=== PATIENT | male | born 1980 | race Caucasian/White ===

== ENCOUNTER 2018-07-30 16:32 | Emergency (ER) | payer SELFPAY ==
[~2018-07-30] VITALS: Ht 182.9 cm; Wt 88.2 kg
[2018-07-30] MEDS ORDERED: propanolol PO (16:54)
[2018-07-30] MEDS ORDERED: zoloft PO (16:54)
[2018-07-30 17:28] LABS: BASOPHILS # (AUTO) 0.01 x10^3/uL (0-0.1); BASOPHILS % (AUTO) 0 % (0-1); EOSINOPHILS # (AUTO) 0.06 x10^3/uL (0-0.4); EOSINOPHILS % (AUTO) 1 % (1-7); LYMPHOCYTES # (AUTO) 0.78 x10^3/uL (1-3.4); LYMPHOCYTES % (AUTO) 9 % (22-44); MD NO; MEAN CORPUSCULAR HEMOGLOBIN 33.8 pg (27.5-34.5); MEAN CORPUSCULAR HGB CONC 33.5 g/dL (33.2-36.2); MEAN CORPUSCULAR VOLUME 100.8 fL (81-97); MEAN PLATELET VOLUME 8.3 fL (7.4-10.4); MONOCYTES # (AUTO) 0.84 x10^3/uL (0.2-0.8); MONOCYTES % (AUTO) 9 % (2-9); NEUTROPHILS # (AUTO) 7.48 x10^3/uL (1.8-6.8); NEUTROPHILS % (AUTO) 82 % (42-75); PLATELET COUNT 226 x10^3/uL (130-400); RED BLOOD COUNT 4.99 x10^6/uL (4.38-5.82); RED CELL DISTRIBUTION WIDTH 14.2 % (9.4-14.8)
[2018-07-30] MEDS ORDERED: LORazepam 2 MG/ML, 1ML IVPush ONE (17:30)
[2018-07-30] MEDS ORDERED: SODIUM CHLORIDE 0.9% 1,000ML IVBOLUS ONE (17:30)
[2018-07-30] MEDS ORDERED: SODIUM CHLORIDE FLUSH 10ML SYR IVF ONE (17:30)
[2018-07-30 17:34] LABS: MICROSCOPIC AUTO
[2018-07-30 17:35] LABS: CULTURE INDICATED? YES
[2018-07-30 17:38] LABS: ALANINE AMINOTRANSFERASE 139 U/L (12-78); ALBUMIN 4.9 g/dL (3.4-5.0); ANION GAP 10 mmol/L (5-15); CALCIUM 9.6 mg/dL (8.5-10.1); CHLORIDE 101 mmol/L (98-107); CREATININE 0.87 mg/dL (0.7-1.3)
[2018-07-30 17:41] LABS: ALKALINE PHOSPHATASE 94 U/L (45-117); BILIRUBIN,TOTAL 2.5 mg/dL (0.2-1.0); TOTAL PROTEIN 9.4 g/dL (6.4-8.2)
[2018-07-30] MEDS ORDERED: LORazepam 2 MG/ML, 1ML ONE (17:47)
[2018-07-30 19:33] VITALS: BP 151/101
[2018-07-31] MEDS ORDERED: PROP20TA PO (13:20)
[2018-07-31] MEDS ORDERED: ANTI-ANXIETY (13:20)
== END 2018-07-30 19:36 | disposition home or self-care (01) ==
LOC: ED 18:15
DX: R19.7 Diarrhea, unspecified (principal); R10.30 Lower abdominal pain, unspecified
CPT/HCPCS: 36415; 74021; 80053; 81001; 85025; 87086; 96361; 96374; 99285; J2060; J7030

== ENCOUNTER 2018-07-31 11:06 | Emergency (ER) | payer SELFPAY ==
[~2018-07-31] VITALS: Ht 182.9 cm; Wt 88.4 kg
[~2018-07-31 11:06] MED LIST: propanolol PO; zoloft PO
[2018-07-31 11:16] VITALS: BP 114/75
[2018-07-31] MEDS ORDERED: FAMOTIDINE 20 MG TABLET ONE (11:22)
[2018-07-31] MEDS ORDERED: DIPHENHYDRAMINE 50 MG CAPSULE ONE (11:22)
[2018-07-31] MEDS ORDERED: DIPHENHYDRAMINE 25 MG CAPSULE PO ONE (11:30)
[2018-07-31] MEDS ORDERED: FAMOTIDINE 20 MG TABLET PO ONE (11:30)
[2018-07-31] MEDS ORDERED: EPINEPHRINE 1 MG/ML, 1ML SQ ONE (12:00)
[2018-07-31] MEDS ORDERED: EPINEPHRINE 1 MG/ML, 1ML ONE (13:13)
[2018-07-31] MEDS ORDERED: ANTI-ANXIETY (13:20)
[2018-07-31] MEDS ORDERED: PROP20TA PO (13:20)
== END 2018-07-31 14:35 | disposition home or self-care (01) ==
LOC: ED 13:56
DX: L50.0 Allergic urticaria (principal); Z88.1 Allergy status to other antibiotic agents
CPT/HCPCS: 96372; 99284; J0171; J7512; Q0163

== ENCOUNTER 2018-08-23 22:34 | Emergency (ER) | payer MEDICAID ==
[~2018-08-23] VITALS: Ht 182.9 cm; Wt 82.0 kg
[~2018-08-23 22:34] MED LIST changes: +ANTI-ANXIETY; +PROP20TA PO
[2018-08-23] MEDS ORDERED: THIAMINE 100MG TABLET ONE (23:12)
[2018-08-23] MEDS ORDERED: LORazepam 2 MG/ML, 1ML ONE (23:14)
[2018-08-23 23:18] LABS: BASOPHILS # (AUTO) 0.01 x10^3/uL (0-0.1); BASOPHILS % (AUTO) 0 % (0-1); EOSINOPHILS % (AUTO) 0 % (1-7); LYMPHOCYTES # (AUTO) 0.49 x10^3/uL (1-3.4); LYMPHOCYTES % (AUTO) 7 % (22-44); MD NO; MEAN CORPUSCULAR HEMOGLOBIN 34.8 pg (27.5-34.5); MEAN CORPUSCULAR HGB CONC 34.4 g/dL (33.2-36.2); MEAN PLATELET VOLUME 8.1 fL (7.4-10.4); MONOCYTES # (AUTO) 0.64 x10^3/uL (0.2-0.8); MONOCYTES % (AUTO) 9 % (2-9); NEUTROPHILS # (AUTO) 5.84 x10^3/uL (1.8-6.8); NEUTROPHILS % (AUTO) 84 % (42-75); PLATELET COUNT 168 x10^3/uL (130-400); RED BLOOD COUNT 4.61 x10^6/uL (4.38-5.82); RED CELL DISTRIBUTION WIDTH 13.5 % (9.4-14.8)
[2018-08-23] MEDS ORDERED: SODIUM CHLORIDE FLUSH 10ML SYR IVF ONE (23:30)
[2018-08-23] MEDS ORDERED: THIAMINE 100MG TABLET PO ONE (23:30)
[2018-08-23] MEDS ORDERED: LORazepam 2 MG/ML, 1ML IVPush ONE (23:30)
[2018-08-23 23:31] LABS: ALANINE AMINOTRANSFERASE 108 U/L (12-78); ALBUMIN 4.5 g/dL (3.4-5.0); ANION GAP 13 mmol/L (5-15); CALCIUM 9.4 mg/dL (8.5-10.1); CHLORIDE 97 mmol/L (98-107); CREATININE 1.06 mg/dL (0.7-1.3)
[2018-08-23 23:33] LABS: ALKALINE PHOSPHATASE 86 U/L (45-117); BILIRUBIN,TOTAL 2.4 mg/dL (0.2-1.0); TOTAL PROTEIN 8.7 g/dL (6.4-8.2)
[2018-08-23 23:48] VITALS: BP 130/97
[2018-08-24] MEDS ORDERED: DIAZEPAM 5 MG TABLET PO ONE
== END 2018-08-24 00:17 | disposition home or self-care (01) ==
LOC: ED 23:41
DX: R56.9 Unspecified convulsions (principal); F10.239 Alcohol dependence with withdrawal, unspecified; Y90.9 Presence of alcohol in blood, level not specified
CPT/HCPCS: 36415; 70450; 80053; 80307; 85025; 93005; 96374; 99285; J2060